=== PATIENT | male | born 1980 | race Caucasian/White ===

== ENCOUNTER 2017-11-25 17:58 | Inpatient (IN) | payer OTHER ==
[2017-11-25 18:23] VITALS: BMI 29.7
--- NOTE | 2017-11-25 19:15 | HP ---
CIWA Score - CIWA Score Nausea/Vomitin-Mild Nausea/No Vomiting Muscle Tremors: 4-Moderate,w/Arms Extend Anxiety: 4-Mod. Anxious/Guarded Agitation: 4-Moderately Restless Paroxysmal Sweats: 1-Minimal Palms Moist Orientation: 1-Uncertain about Date Tacttile Disturbances: 0-None Auditory Disturbances: 0-None Visual Disturbances: 0-None Headache: 1-Very Mild CIWA-Ar Total Score: 16 Admission ROS BHS - HPI Chief Complaint: withdrawal sx Allergies/Adverse Reactions: Allergies Allergy/AdvReac Type Severity Reaction Status Date / Time No Known Allergies Allergy Verified 11/25/17 19:06 History of Present Illness: 37 years old male with long history of alcohol nicotine dependence has depression and on suboxone maintenance program 8/2 mg tid is admitted to detox Exam Limitations: No Limitations - Ebola screening Have you traveled outside of the country in the last 21 days: No Have you had contact with anyone from an Ebola affected area: No Have you been sick,other than usual withdrawal symptoms: No Do you have a fever: No - Review of Systems Constitutional: Changes in sleep, Weight Stable EENT: reports: Blurred Vision (need eye glasses) Respiratory: reports: No Symptoms reported Cardiac: reports: No Symptoms Reported GI: reports: Constipated, Nausea, Poor Fluid Intake, Abdominal cramping : reports: No Symptoms Reported Musculoskeletal: reports: No Symptoms Reported Integumentary: reports: No Symptoms Reported Neuro: reports: Seizure (alcohol withdrawal related 2014), Tremors Endocrine: reports: No Symptoms Reported Hematology: reports: No Symptoms Reported Psychiatric: reports: Judgement Intact, Mood/Affect Appropiate, Depressed Other Systems: Reviewed and Negative Patient History - Patient Medical History Hx Anemia: No Hx Asthma: No Hx Chronic Obstructive Pulmonary Disease (COPD): No Hx Cancer: No Hx Cardiac Disorders: No Hx Congestive Heart Failure: No Hx Hypertension: No Hx Hypercholesterolemia: No Hx Pacemaker: No HX Cerebrovascular Accident: No Hx Seizures: Yes (2014 no treatment) Hx Dementia: No Hx Diabetes: No Hx Gastrointestinal Disorders: No Hx Liver Disease: No Hx Genitourinary Disorders: No Hx Sexually Transmitted Disorders: No Hx Renal Disease (ESRD): No Hx Thyroid Disease: No Hx Human Immunodeficiency Virus (HIV): No Hx Hepatitis C: Yes Hx Depression: Yes Hx Suicide Attempt: Yes (2014 cut wrist ) Hx Bipolar Disorder: No Hx Schizophrenia: No - Patient Surgical History Past Surgical History: Yes Hx Neurologic Surgery: No Hx Cataract Extraction: No Hx Cardiac Surgery: No Hx Lung Surgery: No Hx Breast Surgery: No Hx Breast Biopsy: No Hx Abdominal Surgery: No Hx Appendectomy: No Hx Cholecystectomy: No Hx Genitourinary Surgery: No Hx Orthopedic Surgery: Yes (left hip ankle) Anesthesia Reaction: No - PPD History Previous Implant?: Yes Documented Results: Negative w/o proof Implanted On Prior [facility] Admission?: No PPD to be Administered?: Yes - Smoking Cessation Smoking history: Current every day smoker Have you smoked in the past 12 months: Yes Aproximately how many cigarettes per day: 20 Cigars Per Day: 0 Hx Chewing Tobacco Use: No Initiated information on smoking cessation: Yes 'Breaking Loose' booklet given: 11/25/17 - Substance & Tx. History Hx Alcohol Use: Yes Hx Substance Use: No Substance Use Type: Alcohol Hx Substance Use Treatment: Yes (2014) - Substances Abused Alcohol-vodka Route: Oral Frequency: Daily Amount used: 1/2 gal. Age of first use: 21 Date of Last Use: 11/25/17 Family Disease History - Family Disease History Family Disease History: Diabetes: Grandparent, Heart Disease: Father, Respiratory: Grandparent Admission Physical Exam S - Vital Signs Vital Signs: Vital Signs - 24 hr 11/25/17 18:22 Temperature 95.8 F L Pulse Rate 74 Respiratory 18 Rate Blood Pressure 147/99 - Physical General Appearance: Yes: Nourished, Appropriately Dressed, Mild Distress, Alcohol on Breath, Tremorous, Irritable, Sweating, Anxious HEENTM: Yes: Hearing grossly Normal, Normal ENT Inspection, Normocephalic, Normal Voice Respiratory: Yes: Chest Non-Tender, No Respiratory Distress, No Accessory Muscle Use, Hyperresonant Neck: Yes: Supple, Trachea in good position Breast: Yes: Breasts Symetrical Cardiology: Yes: Regular Rhythm, Regular Rate, S1, S2 Abdominal: Yes: Non Tender, Soft, Decreased BS Genitourinary: Yes: Within Normal Limits Back: Yes: Normal Inspection Musculoskeletal: Yes: full range of Motion, Gait Steady Extremities: Yes: Normal Inspection, Normal Range of Motion, Non-Tender, Tremors Neurological: Yes: Alert, Motor Strength 5/5, Normal Response, Depressed Affect Integumentary: Yes: Warm Lymphatic: Yes: Within Normal Limits - Diagnostic (1) Alcohol dependence with uncomplicated withdrawal Current Visit: Yes Status: Acute (2) Hepatitis C Current Visit: Yes Status: Chronic Qualifiers: Viral hepatitis chronicity: carrier Qualified Code(s): B18.2 - Chronic viral hepatitis C (3) Constipation Current Visit: Yes Status: Chronic Qualifiers: Constipation type: slow transit constipation Qualified Code(s): K59.01 - Slow transit constipation (4) Nicotine dependence Current Visit: Yes Status: Acute Qualifiers: Nicotine product type: cigarettes Substance use status: in withdrawal Qualified Code(s): F17.213 - Nicotine dependence, cigarettes, with withdrawal (5) Depression (emotion) Current Visit: Yes Status: Suspected Qualifiers: Depression Type: dysthymia Qualified Code(s): F34.1 - Dysthymic disorder (6) Encounter for monitoring Suboxone maintenance therapy Current Visit: Yes Status: Chronic Cleared for Admission BHS - Detox or Rehab S Level of Care: Medically Managed Detox Regimen/Protocol: Librium S Breath Alcohol Content Breath Alcohol Content: 0.213 Urine Drug Screen - Results Drug Screen Negative: Yes
[2017-11-25] MEDS ORDERED: LOPERAMIDE HCL 2 MG CAPSULE PO PRN (19:18)
[2017-11-25] MEDS ORDERED: MAG HYDROX/AL HYDROX/SIMETH 30 ML UNIT-DOSE CUP PO PRN (19:18)
[2017-11-25] MEDS ORDERED: MAGNESIUM HYDROX 2400MG/30ML ORAL SUSPENSION 30 ML CUP PO PRN (19:18)
[2017-11-25] MEDS ORDERED: P-EPHED 60MG/TRIPROLIDI 2.5MG TABLET PO PRN (19:18)
[2017-11-25] MEDS ORDERED: MENTHOL/PHENOL 1 EACH UD MM PRN (19:18)
[2017-11-25] MEDS ORDERED: guaiFENesin/D-METHORPHAN HB 10 ML UNIT-DOSE CUPS PO PRN (19:18)
[2017-11-25] MEDS ORDERED: MAGNESIUM CITRATE 300 ML BOTTLE PO PRN (19:18)
[2017-11-25] MEDS ORDERED: cloNIDine HCL 0.1 MG TABLET PO PRN (19:21)
[2017-11-25] MEDS: THIAMINE HCL 100 MG TABLET (FP) PO SCH (22:12)
[2017-11-25] MEDS: DOCUSATE SODIUM 100 MG CAPSULE (FP) PO SCH (22:13)
[2017-11-25] MEDS: BUPRENORPHINE/NALOXONE 8 MG/2 MG FILM PACKET SL SCH (22:13)
[2017-11-25] MEDS: chlordiazePOXIDE HCL 25 MG CAPSULE PO SCH (22:13)
[2017-11-25 23:22] LABS: URINE APPEARANCE CLEAR; URINE BILIRUBIN NEGATIVE (NEGATIVE); URINE BLOOD NEGATIVE (NEGATIVE); URINE COLOR STRAW; URINE GLUCOSE (UA) NEGATIVE (NEGATIVE); URINE KETONE NEGATIVE (NEGATIVE); URINE LEUK ESTERASE NEGATIVE (NEGATIVE); URINE NITRITE NEGATIVE (NEGATIVE); URINE PROTEIN NEGATIVE (NEGATIVE); URINE UROBILINOGEN NEGATIVE mg/dL (0.2-1.0)
[2017-11-26] MEDS: chlordiazePOXIDE HCL 25 MG CAPSULE PO PRN ×3 (00:28→19:49)
[2017-11-26] MEDS: NICOTINE POLACRILEX 4 MG GUM BC PRN ×2 (00:45→20:51)
[2017-11-26] MEDS: DOCUSATE SODIUM 100 MG CAPSULE (FP) PO SCH ×3 (05:13→22:07)
[2017-11-26] MEDS: chlordiazePOXIDE HCL 25 MG CAPSULE PO SCH ×4 (05:14→22:07)
[2017-11-26] MEDS: BUPRENORPHINE/NALOXONE 8 MG/2 MG FILM PACKET SL SCH ×3 (05:14→22:07)
--- NOTE | 2017-11-26 10:09 | EKG ---
Test Reason : Blood Pressure : / mmHG Vent. Rate : 082 BPM Atrial Rate : 082 BPM P-R Int : 150 ms QRS Dur : 106 ms QT Int : 398 ms P-R-T Axes : 053 070 073 degrees QTc Int : 464 ms NORMAL SINUS RHYTHM POSSIBLE LEFT ATRIAL ENLARGEMENT INCOMPLETE RIGHT BUNDLE BRANCH BLOCK BORDERLINE ECG NO PREVIOUS ECGS AVAILABLE Confirmed by DARCIE SIEGEL MD ([id number]) on 11/26/2017 10:09:29 AM Referred By: Confirmed By:DARCIE SIEGEL MD
[2017-11-26] MEDS: PRENATAL VITAMINS W/ FOLIC ACID TABLET (FP) PO SCH (10:11)
[2017-11-26] MEDS: NICOTINE 21 MG/24 HOURS TOPICAL PATCH TD SCH (10:12)
[2017-11-26 10:15] LABS: CHLORIDE 98 mmol/L (98-107); HEMATOCRIT 44.2 % (35.4-49); HEMOGLOBIN 14.9 GM/dL (11.7-16.9); MCH 30.9 pg (25.7-33.7); MCHC 33.8 g/dl (32.0-35.9); MEAN CELL VOLUME 91.5 fl (80-96); MEAN PLT VOLUME 8.5 fl (7.5-11.1); PLATELET COUNT 137 K/MM3 (134-434); POTASSIUM 3.5 mmol/L (3.5-5.1); RBC 4.84 M/mm3 (4.00-5.60); RDW 13.4 % (11.9-15.9); SODIUM 137 mmol/L (136-145); WHITE BLOOD COUNT 3.5 K/mm3 (4.0-10.0)
--- NOTE | 2017-11-26 10:16 | PN ---
[facility] CIWA - CIWA Score Nausea/Vomitin-No Nausea/No Vomiting Muscle Tremors: 4-Moderate,w/Arms Extend Anxiety: 4-Mod. Anxious/Guarded Agitation: 4-Moderately Restless Paroxysmal Sweats: 1-Minimal Palms Moist Orientation: 0-Oriented Tacttile Disturbances: 3-Moderate Itch/Numb/Burn Auditory Disturbances: 0-None Visual Disturbances: 0-None Headache: 0-None Present CIWA-Ar Total Score: 16 BHS Progress Note (SOAP) Subjective: ANXIETY,SWEATS,TREMORS,MUSCLE ACHES/TWITCHING,HEADACHE. Objective: 11/26/17 10:14 Vital Signs Temperature 96.9 F L 11/26/17 09:10 Pulse Rate 87 11/26/17 09:10 Respiratory Rate 18 11/26/17 09:10 Blood Pressure 132/83 11/26/17 09:10 O2 Sat by Pulse Oximetry (%) Laboratory Last Values Urine Color Straw 11/25/17 21:23 Urine Appearance Clear 11/25/17 21:23 Urine pH 7.0 (5.0-8.0) 11/25/17 21:23 Ur Specific [place] 1.003 (1.001-1.035) 11/25/17 21:23 Urine Protein Negative (NEGATIVE) 11/25/17 21:23 Urine Glucose (UA) Negative (NEGATIVE) 11/25/17 21:23 Urine Ketones Negative (NEGATIVE) 11/25/17 21:23 Urine Blood Negative (NEGATIVE) 11/25/17 21:23 Urine Nitrite Negative (NEGATIVE) 11/25/17 21:23 Urine Bilirubin Negative (NEGATIVE) 11/25/17 21:23 Urine Urobilinogen Negative mg/dL (0.2-1.0) 11/25/17 21:23 OTHER LABS PENDING Assessment: 11/26/17 10:15 WITHDRAWAL SX Plan: CONTINUE DETOX MOTRIN PRN
[2017-11-26 10:34] LABS: ALBUMIN 4.2 g/dl (3.4-5.0); ALK PHOS 90 U/L (45-117); ANION GAP 6 (8-16); BILIRUBIN,TOTAL 0.8 mg/dL (0.2-1.0); BLOOD UREA NITROGEN 6 mg/dL (7-18); CALCIUM 9.1 mg/dL (8.5-10.1); CO2 33 mmol/L (21-32); CREATININE 0.8 mg/dL (0.7-1.3); GLUCOSE,RANDOM 136 mg/dL (74-106); SGOT/AST 166 U/L (15-37); SGPT/ALT 192 U/L (12-78); TOT PROT 7.5 g/dl (6.4-8.2)
--- NOTE | 2017-11-26 12:08 | CONSULT ---
[facility] Psychiatric Consult - Data Date of interview: 11/26/17 Admission source: [facility] Identifying data: First admission to [facility] for this 37 y/o male seeking detox treatment on for alcohol dependence.Patient is single without children,domiciled,unemployed and supported on food stamps. Substance Abuse History: Confirmed by patient in this interview.See current [facility] report for details : Smoking history: Current every day smoker. Have you smoked in the past 12 months: Yes. Aproximately how many cigarettes per day: 20. Cigars Per Day: 0. Hx Chewing Tobacco Use: No. Initiated information on smoking cessation: Yes. 'Breaking Loose' booklet given: 11/25/17. - Substance & Tx. History. Hx Alcohol Use: Yes. Hx Substance Use: No. Substance Use Type : Alcohol. Hx Substance Use Treatment: Yes (2014). - Substances Abused. Alcohol-vodka. Route: Oral. Frequency: Daily. Amount used: 1/2 gal. Age of first use: 21. Date of Last Use: 11/25/17 Medical History: Hepatitis C,past history of withdrawal-related seizures and antecedent of orthosurgery (fracture of left hip + both ankles). Psychiatric History: Patient admits to a history of one psychiatric hospitalization at [facility] in [place] (2013) due to depression and suicide attempt via wrist-cutting.Diagnosed with MDD.Mr Durán declares that he does not recall the names of the medications prescribed at the time." I believe that it was an antidepressant." Patient affirms that he dropped out of treatment immediately after discharge from the facility.Expresses no interest in resuming psychotropic medications. Physical/Sexual Abuse/Trauma History: Patient denies history of abuse. Additional Comment: Drug Screen is negative. Mental Status Exam - Mental Status Exam Alert and Oriented to: Time, Place, Person Cognitive Function: Good Patient Appearance: Well Groomed Mood: Hopeful, Euthymic Affect: Appropriate, Normal Range Patient Behavior: Fatigued, Appropriate, Cooperative Speech Pattern: Clear, Appropriate Voice Loudness: Normal Thought Process: Intact, Goal Oriented Thought Disorder: Not Present Hallucinations: Denies Suicidal Ideation: Denies Homicidal Ideation: Denies Insight/Judgement: Fair Sleep: Poorly, Difficulty falling asleep Appetite: Good Muscle strength/Tone: Normal Gait/Station: Normal Psychiatric Findings - Problem List ([place] 1, 2,3) (1) Alcohol dependence with uncomplicated withdrawal Current Visit: Yes Status: Acute (2) Nicotine dependence Current Visit: Yes Status: Acute Qualifiers: Nicotine product type: cigarettes Substance use status: in withdrawal Qualified Code(s): F17.213 - Nicotine dependence, cigarettes, with withdrawal (3) Insomnia Current Visit: Yes Status: Acute - Initial Treatment Plan Initial Treatment Plan: Psychoeducation.Detoxification.Sleep hygiene.A selection of hypnotic medications that includes trazodone,seroquel,zolpidem, tricyclics is presented to the patient : he declines.Mr Durán feels that librium is already helpful.Observation.
[2017-11-26] MEDS ORDERED: ONDANSETRON *ODT* 4 MG TABLET SL PRN (12:15)
[2017-11-26] MEDS: hydrOXYzine PAMOATE 50 MG CAPSULE (FP) PO PRN ×2 (17:04→22:08)
[2017-11-26] MEDS: cloNIDine HCL 0.1 MG TABLET PO SCH (22:07)
[2017-11-26] MEDS: THIAMINE HCL 100 MG TABLET (FP) PO SCH (22:10)
[2017-11-27] MEDS: chlordiazePOXIDE HCL 25 MG CAPSULE PO PRN ×3 (00:58→19:58)
[2017-11-27] MEDS: DOCUSATE SODIUM 100 MG CAPSULE (FP) PO SCH ×3 (05:43→22:17)
[2017-11-27] MEDS: chlordiazePOXIDE HCL 25 MG CAPSULE PO SCH ×4 (05:43→17:18)
[2017-11-27] MEDS: BUPRENORPHINE/NALOXONE 8 MG/2 MG FILM PACKET SL SCH ×3 (05:44→22:16)
[2017-11-27] MEDS: IBUPROFEN 400 MG TABLET (FP) PO PRN (05:44)
[2017-11-27] MEDS: NICOTINE POLACRILEX 4 MG GUM BC PRN ×4 (08:35→20:01)
[2017-11-27] MEDS: PRENATAL VITAMINS W/ FOLIC ACID TABLET (FP) PO SCH (10:11)
[2017-11-27] MEDS: cloNIDine HCL 0.1 MG TABLET PO SCH ×2 (10:11→22:17)
[2017-11-27] MEDS: NICOTINE 21 MG/24 HOURS TOPICAL PATCH TD SCH (10:11)
--- NOTE | 2017-11-27 11:07 | PN ---
[facility] CIWA - CIWA Score Nausea/Vomitin-No Nausea/No Vomiting Muscle Tremors: 4-Moderate,w/Arms Extend Anxiety: 5 Agitation: 4-Moderately Restless Paroxysmal Sweats: 1-Minimal Palms Moist Orientation: 0-Oriented Tacttile Disturbances: 3-Moderate Itch/Numb/Burn Auditory Disturbances: 0-None Visual Disturbances: 0-None Headache: 0-None Present CIWA-Ar Total Score: 17 S Progress Note (SOAP) Subjective: C/O ANXIETY,SWEATS,IRRITABILITY,TREMORS. Objective: 11/27/17 11:06 Vital Signs Temperature 96.5 F L 11/27/17 09:09 Pulse Rate 110 H 11/27/17 09:09 Respiratory Rate 20 11/27/17 09:09 Blood Pressure 146/91 11/27/17 09:09 O2 Sat by Pulse Oximetry (%) Laboratory Last Values WBC 3.5 K/mm3 (4.0-10.0) L 11/26/17 07:54 RBC 4.84 M/mm3 (4.00-5.60) 11/26/17 07:54 Hgb 14.9 GM/dL (11.7-16.9) 11/26/17 07:54 Hct 44.2 % (35.4-49) 11/26/17 07:54 MCV 91.5 fl (80-96) 11/26/17 07:54 MCH 30.9 pg (25.7-33.7) 11/26/17 07:54 MCHC 33.8 g/dl (32.0-35.9) 11/26/17 07:54 RDW 13.4 % (11.9-15.9) 11/26/17 07:54 Plt Count 137 K/MM3 (134-434) 11/26/17 07:54 MPV 8.5 fl (7.5-11.1) 11/26/17 07:54 Sodium 137 mmol/L (136-145) 11/26/17 07:54 Potassium 3.5 mmol/L (3.5-5.1) 11/26/17 07:54 Chloride 98 mmol/L (98-107) 11/26/17 07:54 Carbon Dioxide 33 mmol/L (21-32) H 11/26/17 07:54 Anion Gap 6 (8-16) L 11/26/17 07:54 BUN 6 mg/dL (7-18) L 11/26/17 07:54 Creatinine 0.8 mg/dL (0.7-1.3) 11/26/17 07:54 Creat Clearance w eGFR > 60 (>60) 11/26/17 07:54 Random Glucose 136 mg/dL (74-106) H 11/26/17 07:54 Calcium 9.1 mg/dL (8.5-10.1) 11/26/17 07:54 Total Bilirubin 0.8 mg/dL (0.2-1.0) 11/26/17 07:54 AST 166 U/L (15-37) H 11/26/17 07:54 ALT 192 U/L (12-78) H 11/26/17 07:54 Alkaline Phosphatase 90 U/L (45-117) 11/26/17 07:54 Total Protein 7.5 g/dl (6.4-8.2) 11/26/17 07:54 Albumin 4.2 g/dl (3.4-5.0) 11/26/17 07:54 Urine Color Straw 11/25/17 21:23 Urine Appearance Clear 11/25/17 21:23 Urine pH 7.0 (5.0-8.0) 11/25/17 21:23 Ur Specific [place] 1.003 (1.001-1.035) 11/25/17 21:23 Urine Protein Negative (NEGATIVE) 11/25/17 21:23 Urine Glucose (UA) Negative (NEGATIVE) 11/25/17 21:23 Urine Ketones Negative (NEGATIVE) 11/25/17 21:23 Urine Blood Negative (NEGATIVE) 11/25/17 21:23 Urine Nitrite Negative (NEGATIVE) 11/25/17 21:23 Urine Bilirubin Negative (NEGATIVE) 11/25/17 21:23 Urine Urobilinogen Negative mg/dL (0.2-1.0) 11/25/17 21:23 Ur Leukocyte Esterase Negative (NEGATIVE) 11/25/17 21:23 RPR Titer Nonreactive (NONREACTIVE) 11/26/17 07:54 Assessment: 11/27/17 11:06 WITHDRAWAL SX Plan: CONTINUE DETOX ADDITIONAL LIBRIUM 50 MG PO AT 2:30 PM TODAY INCREASE PO FLUIDS.
[2017-11-27] MEDS ORDERED: chlordiazePOXIDE HCL 25 MG CAPSULE PO ONE (14:30)
[2017-11-27] MEDS: hydrOXYzine PAMOATE 50 MG CAPSULE (FP) PO PRN ×2 (17:18→22:19)
[2017-11-27] MEDS: THIAMINE HCL 100 MG TABLET (FP) PO SCH (22:16)
[2017-11-27] MEDS: chlordiazePOXIDE 5 MG CAPSULE PO SCH (22:16)
[2017-11-28] MEDS: ACETAMINOPHEN 325 MG TABLET (FP) PO PRN ×2 (05:15→14:16)
[2017-11-28] MEDS: chlordiazePOXIDE 5 MG CAPSULE PO SCH ×3 (05:15→17:36)
[2017-11-28] MEDS: BUPRENORPHINE/NALOXONE 8 MG/2 MG FILM PACKET SL SCH ×3 (05:18→22:34)
[2017-11-28] MEDS: hydrOXYzine PAMOATE 50 MG CAPSULE (FP) PO PRN ×3 (05:18→22:54)
[2017-11-28] MEDS: DOCUSATE SODIUM 100 MG CAPSULE (FP) PO SCH ×3 (05:18→22:33)
[2017-11-28] MEDS: PRENATAL VITAMINS W/ FOLIC ACID TABLET (FP) PO SCH (10:20)
[2017-11-28] MEDS: NICOTINE 21 MG/24 HOURS TOPICAL PATCH TD SCH (10:20)
[2017-11-28] MEDS: cloNIDine HCL 0.1 MG TABLET PO SCH ×2 (10:20→22:33)
[2017-11-28] MEDS: IBUPROFEN 400 MG TABLET (FP) PO PRN (10:22)
--- NOTE | 2017-11-28 12:50 | PN ---
BHS Progress Note (SOAP) Subjective: ANXIETY,IRRITABILITY,RESTLESS,N/V, INTERMITTENT SLEEP Objective: 11/28/17 12:49 Vital Signs 11/28/17 11/28/17 11/28/17 06:17 07:04 09:15 Temperature 96.5 F L 97.3 F L Pulse Rate 62 131 H Respiratory 18 18 18 Rate Blood Pressure 109/57 141/93 Laboratory Last Values WBC 3.5 K/mm3 (4.0-10.0) L 11/26/17 07:54 RBC 4.84 M/mm3 (4.00-5.60) 11/26/17 07:54 Hgb 14.9 GM/dL (11.7-16.9) 11/26/17 07:54 Hct 44.2 % (35.4-49) 11/26/17 07:54 MCV 91.5 fl (80-96) 11/26/17 07:54 MCH 30.9 pg (25.7-33.7) 11/26/17 07:54 MCHC 33.8 g/dl (32.0-35.9) 11/26/17 07:54 RDW 13.4 % (11.9-15.9) 11/26/17 07:54 Plt Count 137 K/MM3 (134-434) 11/26/17 07:54 MPV 8.5 fl (7.5-11.1) 11/26/17 07:54 Sodium 137 mmol/L (136-145) 11/26/17 07:54 Potassium 3.5 mmol/L (3.5-5.1) 11/26/17 07:54 Chloride 98 mmol/L (98-107) 11/26/17 07:54 Carbon Dioxide 33 mmol/L (21-32) H 11/26/17 07:54 Anion Gap 6 (8-16) L 11/26/17 07:54 BUN 6 mg/dL (7-18) L 11/26/17 07:54 Creatinine 0.8 mg/dL (0.7-1.3) 11/26/17 07:54 Creat Clearance w eGFR > 60 (>60) 11/26/17 07:54 Random Glucose 136 mg/dL (74-106) H 11/26/17 07:54 Calcium 9.1 mg/dL (8.5-10.1) 11/26/17 07:54 Total Bilirubin 0.8 mg/dL (0.2-1.0) 11/26/17 07:54 AST 166 U/L (15-37) H 11/26/17 07:54 ALT 192 U/L (12-78) H 11/26/17 07:54 Alkaline Phosphatase 90 U/L (45-117) 11/26/17 07:54 Total Protein 7.5 g/dl (6.4-8.2) 11/26/17 07:54 Albumin 4.2 g/dl (3.4-5.0) 11/26/17 07:54 Urine Color Straw 11/25/17 21:23 Urine Appearance Clear 11/25/17 21:23 Urine pH 7.0 (5.0-8.0) 11/25/17 21:23 Ur Specific [place] 1.003 (1.001-1.035) 11/25/17 21:23 Urine Protein Negative (NEGATIVE) 11/25/17 21:23 Urine Glucose (UA) Negative (NEGATIVE) 11/25/17 21:23 Urine Ketones Negative (NEGATIVE) 11/25/17 21:23 Urine Blood Negative (NEGATIVE) 11/25/17 21:23 Urine Nitrite Negative (NEGATIVE) 11/25/17 21:23 Urine Bilirubin Negative (NEGATIVE) 11/25/17 21:23 Urine Urobilinogen Negative mg/dL (0.2-1.0) 11/25/17 21:23 Ur Leukocyte Esterase Negative (NEGATIVE) 11/25/17 21:23 RPR Titer Nonreactive (NONREACTIVE) 11/26/17 07:54 Assessment: 11/28/17 12:49 WITHDRAWAL SX Plan: CONTINUE DETOX
[2017-11-28] MEDS: chlordiazePOXIDE HCL 25 MG CAPSULE PO PRN (14:03)
[2017-11-28] MEDS ORDERED: GABAPENTIN 100 MG CAPSULE (FP) PO SCH (15:15)
[2017-11-28] MEDS ORDERED: cloNIDine HCL 0.1 MG TABLET PO ONE (15:36)
[2017-11-28] MEDS ORDERED: chlordiazePOXIDE HCL 25 MG CAPSULE PO ONE (15:37)
[2017-11-28] MEDS ORDERED: ZOLPIDEM TARTRATE 10 MG TABLET (PARK CARE ONLY) PO PRN (15:38)
--- NOTE | 2017-11-28 16:04 | PN ---
[facility] Progress Note Note: PT HAS BEEN VERY RESTLESS AND C/O "MIGRAINE HEADACHE" NOT RELIEVED WITH TYLENOL OR MOTRIN. PT ALSO HAS BEEN MEDICATED WITH ALL NECESSARY DETOX PROTOCOL MED ON HIS MENU BUT TO NO EFFECT. PT EXPRESSED ANXIETY OF DISCOMFORT IN LIEU OF TOMORROW'S DISCHARGE DAY. SPOKE TO PATIENT AT LENGTH ON MEDICATIONS GIVEN TO ALLEVIATE HIS DISCOMFORT. OFFERED HIM IMITREX FOR MIGRAINE BUT HE REFUSED. PT WAS ALSO OFFERED TO BE TRANSFERRED TO [facility] ER AND HE DECLINED. 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 WENT BACK TO PATIENT AND PT IS HAPPY WITH THE LATEST INTERVENTIONS. ALERT O X 3. Vital Signs Temperature 96.4 F L 11/28/17 13:54 Pulse Rate 102 H 11/28/17 13:54 Respiratory Rate 18 11/28/17 13:54 Blood Pressure 154/88 11/28/17 13:54 O2 Sat by Pulse Oximetry (%) CONTINUE TO MONITOR PATIENT.
[2017-11-28] MEDS: GABAPENTIN 300 MG CAPSULE (FP) PO SCH (22:33)
[2017-11-28] MEDS: chlordiazePOXIDE HCL 10 MG CAPSULE PO SCH (22:33)
[2017-11-28] MEDS: THIAMINE HCL 100 MG TABLET (FP) PO SCH (22:34)
[2017-11-28] MEDS: NICOTINE POLACRILEX 4 MG GUM BC PRN (22:55)
[2017-11-29] MEDS: chlordiazePOXIDE HCL 10 MG CAPSULE PO SCH (05:51)
[2017-11-29] MEDS: GABAPENTIN 300 MG CAPSULE (FP) PO SCH (05:52)
[2017-11-29] MEDS: DOCUSATE SODIUM 100 MG CAPSULE (FP) PO SCH (05:52)
[2017-11-29] MEDS: hydrOXYzine PAMOATE 50 MG CAPSULE (FP) PO PRN (05:53)
[2017-11-29] MEDS: BUPRENORPHINE/NALOXONE 8 MG/2 MG FILM PACKET SL SCH (06:04)
[2017-11-29 06:26] VITALS: BP 133/89; PULSE 86; TEMP 96.5
--- NOTE | 2017-11-29 18:55 | DS ---
[facility] Detox Discharge Summary Admission Date: 11/25/17 Discharge Date: 11/29/17 - History Present History: Alcohol Dependence Additional Comments: PATIENT RETURNING TO [facility] OUTPATIENT SUBSTACNE USE TREATMENT PROGRAM ( [facility] AUGUSTINE) FOR AFTERCARE. PATIENT WAS DISCHARGED FROM DETOX UNIT IN STABLE MEDICAL CONDITION. Pertinent Past History: Depression, Hep C, History of Seizures, Suboxone Maintenance Therapy, Constipation, Nicotine Dependence, Insomnia. - Physical Exam Results Vital Signs: Vital Signs Temperature 96.5 F L 11/29/17 06:05 Pulse Rate 86 11/29/17 06:05 Respiratory Rate 19 11/29/17 06:05 Blood Pressure 133/89 11/29/17 06:05 O2 Sat by Pulse Oximetry (%) Pertinent Admission Physical Exam Findings: WITHDRAWAL SYMPTOMS. Laboratory Tests 11/25/17 11/26/17 11/26/17 21:23 07:54 07:54 WBC 3.5 L RBC 4.84 Hgb 14.9 Hct 44.2 MCV 91.5 MCH 30.9 MCHC 33.8 RDW 13.4 Plt Count 137 MPV 8.5 Sodium 137 Potassium 3.5 Chloride 98 Carbon Dioxide 33 H Anion Gap 6 L BUN 6 L Creatinine 0.8 Creat Clearance w eGFR > 60 Random Glucose 136 H Calcium 9.1 Total Bilirubin 0.8 AST 166 H ALT 192 H Alkaline Phosphatase 90 Total Protein 7.5 Albumin 4.2 Urine Color Straw Urine Appearance Clear Urine pH 7.0 Ur Specific [place] 1.003 Urine Protein Negative Urine Glucose (UA) Negative Urine Ketones Negative Urine Blood Negative Urine Nitrite Negative Urine Bilirubin Negative Urine Urobilinogen Negative Ur Leukocyte Esterase Negative RPR Titer 11/26/17 07:54 WBC RBC Hgb Hct MCV MCH MCHC RDW Plt Count MPV Sodium Potassium Chloride Carbon Dioxide Anion Gap BUN Creatinine Creat Clearance w eGFR Random Glucose Calcium Total Bilirubin AST ALT Alkaline Phosphatase Total Protein Albumin Urine Color Urine Appearance Urine pH Ur Specific [place] Urine Protein Urine Glucose (UA) Urine Ketones Urine Blood Urine Nitrite Urine Bilirubin Urine Urobilinogen Ur Leukocyte Esterase RPR Titer Nonreactive LABS NOTED. - Treatment Hospital Course: Detox Protocol Followed, Detoxed Safely, Responded well, Discharged Condition Good Patient has Accepted a Rehab Referral to: PT RETURNING TO [facility]PAT[facility]RE[facility] - Diagnosis (1) Alcohol dependence with uncomplicated withdrawal Status: Acute (2) Insomnia Status: Acute Qualifiers: Insomnia type: unspecified Qualified Code(s): G47.00 - Insomnia, unspecified (3) Nicotine dependence Status: Acute Qualifiers: Nicotine product type: cigarettes Substance use status: in withdrawal Qualified Code(s): F17.213 - Nicotine dependence, cigarettes, with withdrawal (4) Constipation Status: Chronic Qualifiers: Constipation type: slow transit constipation Qualified Code(s): K59.01 - Slow transit constipation (5) Encounter for monitoring Suboxone maintenance therapy Status: Chronic (6) Hepatitis C Status: Chronic Qualifiers: Viral hepatitis chronicity: carrier Qualified Code(s): B18.2 - Chronic viral hepatitis C (7) Depression (emotion) Status: Suspected Qualifiers: Depression Type: dysthymia Qualified Code(s): F34.1 - Dysthymic disorder - AMA Did Patient Leave Against Medical Advice: No
--- NOTE | 2017-12-03 13:35 | EKG ---
Test Reason : Blood Pressure : / mmHG Vent. Rate : 081 BPM Atrial Rate : 081 BPM P-R Int : 150 ms QRS Dur : 098 ms QT Int : 384 ms P-R-T Axes : 046 070 069 degrees QTc Int : 446 ms NORMAL SINUS RHYTHM INCOMPLETE RIGHT BUNDLE BRANCH BLOCK WHEN COMPARED WITH ECG OF 25-NOV-2017 22:13, THERE WERE NO SIGNIFICANT CHANGES. Confirmed by RAYMOND MIRANDA MD ([id number]) on 12/03/2017 1:35:02 PM Referred By: Confirmed By:RAYMOND MIRANDA MD
== END 2017-11-29 08:15 | disposition home or self-care (01) | DRG 773 ==
LOC: YASAS 17:58 → Y3N 19:34
PROVIDERS: ADMIT Internal Medicine; ATTEND Internal Medicine
PROC: HZ2ZZZZ Detoxification Services for Substance Abuse Treatment (ICD-10-PCS; principal; 2017-11-25)
DX: F10.230 Alcohol dependence with withdrawal, uncomplicated (principal); F11.20 Opioid dependence, uncomplicated; F17.213 Nicotine dependence, cigarettes, with withdrawal; F34.1 Dysthymic disorder; G47.00 Insomnia, unspecified; K59.01 Slow transit constipation; B18.2 Chronic viral hepatitis C; Z86.69 Personal history of other diseases of the nervous system and sense organs; Z91.5 Personal history of self-harm
CPT/HCPCS: 36415; 80053; 81003; 85027; 86593; 93005; 93010

== ENCOUNTER 2019-02-18 09:01 | Emergency (ER) | payer OTHER | END 2019-02-18 10:03 | disposition left against medical advice (07) | LOC: JERFT 09:01 → JER 10:03 ==